=== PATIENT | male | born 1960 | race Caucasian/White ===

== ENCOUNTER 2019-02-17 11:33 | Emergency (ER) | payer SELFPAY ==
[~2019-02-17] VITALS: Ht 170.2 cm; Wt 90.0 kg
[2019-02-17] MEDS: BACITRACIN 0.9 GM PACKET OINTMENT TP ONE (12:54)
[2019-02-17] MEDS: LIDOCAINE/PF 1% 5 ML VIAL INJ ONE (12:55)
[2019-02-17 14:05] VITALS: BP 139/76
== END 2019-02-17 14:19 | disposition home or self-care (01) ==
LOC: EMS 11:33
DX: S01.312A Laceration without foreign body of left ear, initial encounter (principal); W25.XXXA Contact with sharp glass, initial encounter; Y93.89 Activity, other specified; Y92.89 Other specified places as the place of occurrence of the external cause; Y99.8 Other external cause status
CPT/HCPCS: 12014; 99283; J2001

== ENCOUNTER 2019-02-24 09:11 | Emergency (ER) | payer OTHER ==
[~2019-02-24] VITALS: Ht 170.2 cm; Wt 90.0 kg
[2019-02-24 09:39] VITALS: BP 149/92
== END 2019-02-24 10:58 | disposition home or self-care (01) ==
LOC: EMS 09:12
DX: S01.312D Laceration without foreign body of left ear, subsequent encounter (principal); Z48.02 Encounter for removal of sutures; W25.XXXD Contact with sharp glass, subsequent encounter